=== PATIENT | female | born 1995 | race Caucasian/White ===

== ENCOUNTER 2016-07-25 06:55 | Emergency (ER) | payer MEDICAID ==
[~2016-07-25] VITALS: Ht 157.5 cm; Wt 56.7 kg
[2016-07-25 07:04] VITALS: BP 116/76
--- NOTE | 2016-07-25 07:09 | NUR ---
Patient to bed 03.
[2016-07-25] MEDS ORDERED: NACL 0.9% 1,000 ML IV SCH (07:10)
[2016-07-25] MEDS ORDERED: MORPHINE SULFATE 10 MG/ML SYR IVP ONE (07:10)
[2016-07-25] MEDS ORDERED: ONDANSETRON 4 MG/2 ML VIAL IVP ONE (07:10)
[2016-07-25] MEDS ORDERED: NACL 0.9% 500 ML IV SCH (07:10)
--- NOTE | 2016-07-25 07:27 | NUR ---
PATIENT PRESENTS TO ED WITH 21Y F BIB SELF C/O LEFT FLANK PAIN X 1 DAY, HX BLADDER INFECTION,DENIES N/V/D; SKIN IS PINK/WARM/DRY; AAOX4 WITH EVEN AND STEADY GAIT; LUNGS CLEAR BL; HR EVEN AND REGULAR; PT DENIES ANY FEVER, CP, SOB, OR COUGH AT THIS TIME; PATIENT STATES PAIN OF 9/10 AT THIS TIME; VSS; PATIENT POSITIONED FOR COMFORT; HOB ELEVATED; BEDRAILS UP X2; BED DOWN. ER MD MADE AWARE OF PT STATUS.
[2016-07-25] MEDS ORDERED: cefTRIAXone 1,000 MG VIAL ONE (09:48)
[2016-07-25 11:04] VITALS: BP 120/69
--- NOTE | 2016-07-25 11:04 | NUR ---
Patient discharged with v/s stable. Written and verbal after care instructions given and explained. Patient alert, oriented and verbalized understanding of instructions. Ambulatory with steady gait. All questions addressed prior to discharge. ID band removed. Patient advised to follow up with PMD. Rx of motrin and bactrim ds given. Patient educated on indication of medication including possible reaction and side effects. Opportunity to ask questions provided and answered. MD assessed pt before discharge.
== END 2016-07-25 11:04 | disposition home or self-care (01) ==
LOC: MED 06:55
DX: N23 Unspecified renal colic (principal); N12 Tubulo-interstitial nephritis, not specified as acute or chronic
CPT/HCPCS: 36415; 74176; 80053; 81001; 81025; 82150; 83690; 85025; 87086; 87186; 96361; 96365; 96375; 99285; J0696; J2270; J2405; J7030; J7060